=== PATIENT | female | born 1935 | race Caucasian/White ===

== ENCOUNTER 2019-03-24 11:57 | Emergency (ER) | payer MEDICARE, OTHER, SELFPAY ==
[2019-03-24 12:00] VITALS: BP 161/92; PULSE 67; RESP 16; TEMP 36.6; O2SAT 95
--- NOTE | 2019-03-24 12:00 | ECG_ITS ---
Measurements Intervals [place] Rate: 65 P: 75 SC: 167 QRS: 75 QRSD: 129 T: 63 QT: 393 QTc: 410 Interpretive Statements SINUS RHYTHM POSSIBLE LEFT ATRIAL ENLARGEMENT RIGHT BUNDLE BRANCH BLOCK BASELINE ARTIFACT- I, III, AVR, AVL,A VF ABNORMAL ECG Electronically Signed On 03-25-2019 13:55:04 HOT MILL OPERATOR by Henok Ceballos D.O.
--- NOTE | 2019-03-24 12:10 | ED.FALL ---
HPI - Fall General Chief Complaint: Fall Stated Complaint: Fall - Right arm injury Time Seen by Provider: 03/24/19 12:09 Source: patient and RN notes reviewed Mode of arrival: ambulatory Limitations: no limitations History of Present Illness HPI Narrative: A 84 y/o female presents to the ED after having a ground level fall at 5:45 AM this morning. She states that she got up from bed at 5:45 AM when she leaned too far to the rt on her walker and tipped over, falling, and hitting her rt wrist on a piece of furniture. She reports some mild rt wrist pain and a laceration. She notes that she was able to get up on her own and ambulate after. She notes that her last tetanus shot was on 05/2006. She denies any MORGAN, neck pain, back pain, ABD pain, CP, HI, LOC, and any other medical complaints at this time. MD complaint: fall Onset (ago): hour(s) (6) Fall from: standing Place fall occurred: home Loss of consciousness: none Prolonged down time: no Symptoms prior to fall: none Context: tripped/slipped Location of injury - extremities: Left: forearm (wrist) Associated symptoms (after fall): denies Related Data Home Medications Medication Instructions Recorded Confirmed denosumab 60 mg/mL subcutaneous 60 mg SUB-Q [id number] 01/31/19 syringe C,E,zinc,copper [id number] 1 cap PO DAILY 03/24/19 03/24/19 [Ocuvite Adult 50 Plus] [place]-3 (with dpa) 03/24/19 ascorbic acid (vitamin C) [Vitamin 500 mg PO DAILY 03/24/19 03/24/19 C] aspirin 81 mg PO DAILY 03/24/19 03/24/19 calcium carbonate [Calcium 600] 600 mg PO DAILY 03/24/19 03/24/19 cholecalciferol (vitamin D3) 2,000 unit PO DAILY 03/24/19 03/24/19 [Vitamin D3] denosumab [Prolia] 60 mg SUBCUT [id number] 03/24/19 03/24/19 latanoprost 1 drp OPHTHALMIC (EYE) DAILY 03/24/19 03/24/19 magnesium 250 mg PO DAILY 03/24/19 03/24/19 pilocarpine HCl 1 drp OPHTHALMIC (EYE) QID 03/24/19 03/24/19 primidone 25 mg PO HS 03/24/19 03/24/19 vitamin B complex 1 tablet PO DAILY 03/24/19 03/24/19 Allergies Allergy/AdvReac Type Severity Reaction Status Date / Time bacitracin Allergy Unknown Unknown Verified 03/24/19 12:09 gentamicin Allergy Unknown Unknown Verified 03/24/19 12:09 neomycin Allergy Unknown Unknown Verified 03/24/19 12:09 Sulfa (Sulfonamide Allergy Unknown Unknown Verified 03/24/19 12:09 Antibiotics) timolol Allergy Unknown Unknown Verified 03/24/19 12:09 Review of Systems Review of Systems: All systems reviewed & are unremarkable except as noted in HPI and below Constitutional: Constitutional: Denies chills, Denies fever(s), Denies headache(s) and Denies weakness Eyes: Eyes: Denies blurry vision ENT: Denies headache(s) and Denies neck pain Cardiovascular: Cardiovascular: Denies chest pain and Denies dyspnea Respiratory: Respiratory: Denies cough and Denies dyspnea Gastrointestinal: Gastrointestinal: Denies abdominal pain, Denies diarrhea, Denies nausea and Denies vomiting Genitourinary: Genitourinary: Denies hematuria and Denies dysuria Musculoskeletal: Musculoskeletal: Denies back pain, Denies neck pain and Reports other (mild lt wrist pain) Integumentary/Breasts: Skin/Breast: Reports other (skin tear lt wrist) Neurologic: Denies headache(s), Denies weakness and Denies other (HI or LOC) [facility] Past Medical History Medical History (Updated 03/24/19 @ 12:23 by Camacho Rodriguez) Femur fracture, left Surgical History Surgical History (Updated 03/24/19 @ 12:23 by Camacho Rodriguez) Surgical history unknown Family History Family History (Updated 09/22/18 @ 10:19 by DOCTOR UNKNOWN) Father Acute myocardial infarction Patient's father is Mother Acute myocardial infarction Patient's mother is Social History Social History Smoking status: Never smoker Second hand tobacco smoke exposure: No Alcohol intake: never Exam Const: General: no acute distress and well developed Orientation/consciousness: oriented to person, oriented to place
[2019-03-24] MEDS: TETANUS,DIPHTHERIA,AC PERTUSSIS ADULT (0.5 ML) BOOSTRIX IM (13:17)
[2019-03-24 13:22] VITALS: BP 148/76; PULSE 56; RESP 15; O2SAT 98
== END 2019-03-24 13:23 | disposition home or self-care (01) ==
PROVIDERS: Emergency Provider Emergency Medicine; PCP Internal Medicine
DX: S51.811A Laceration without foreign body of right forearm, initial encounter (principal); Z23 Encounter for immunization; I45.10 Unspecified right bundle-branch block; R94.31 Abnormal electrocardiogram [ECG] [EKG]; W18.39XA Other fall on same level, initial encounter
CPT/HCPCS: 90471; 90715; 93005; 99282

== ENCOUNTER 2019-04-11 10:56 | Outpatient (CLI) | payer MEDICARE, OTHER, SELFPAY ==
--- NOTE | ~2019-04-11 | MR_ITS ---
EXAMINATION: MR brain/brain stem wo/w con DATE: 04/11/2019 12:13 INDICATION: Cerebral infarction, unspecified. TECHNIQUE: Magnetic resonance imaging (MRI) of the brain and brainstem was performed without and with 12 mL MultiHance intravenous contrast. Sequences included sagittal and axial T1-weighted FSE, axial diffusion-weighted FS EPI, axial T2*-weighted GRE, axial T2-weighted FLAIR Propeller, and axial T2-we ighted Propeller. Postcontrast sequences included axial and coronal T1-weighted FSE. Apparent diffusi on coefficient (ADC) maps were created. COMPARISON: Brain MRI 02/08/2019 FINDINGS: There are old infarcts in the bilateral basal ganglia. There are scattered areas of nonspec ific increased T2-weighted signal intensity in the cerebral white matter. There is no intracranial he morrhage, acute infarction, or abnormal intracranial mass lesion. There is ex vacuo dilatation of ant erior body of right lateral ventricle. The paranasal sinuses are clear. There are likely changes of o cular lens replacement surgeries. The mastoid air cells are normal. IMPRESSION: 1. Old infarcts in the bilateral basal ganglia. 2. Unchanged moderate nonspecific cerebral white matter disease, which likely represents chronic smal l vessel ischemic disease. Reviewed, dictated and finalized at location A. 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 Old infarcts in the bilateral basal ganglia. 2. Unchanged moderate nonspecific cerebral white matter disease, which likely r epresents chronic small vessel ischemic disease.
[2019-04-11 11:42] LABS: Blood Urea Nitrogen 22 mg/dL (8-26); Estimated Glomerular Filt Rate > 60
== END 2019-04-11 10:57 | disposition home or self-care (01) ==
PROVIDERS: PCP Internal Medicine; Visit Provider Internal Medicine
DX: I63.9 Cerebral infarction, unspecified (principal); R93.0 Abnormal findings on diagnostic imaging of skull and head, not elsewhere classified
CPT/HCPCS: 70553; A9577

== ENCOUNTER 2019-09-14 15:52 | Outpatient (CLI) | payer MEDICARE, OTHER, SELFPAY ==
--- NOTE | ~2019-09-14 | MM_ITS ---
EXAMINATION: MM screening [facility] BI w [facility]bell HISTORY: Screening mammogram TECHNIQUE: Craniocaudal and mediolateral oblique 3-D tomosynthesis images were obtained and synthetic 2-D images were generated. CAD analysis was submitted and interpreted. COMPARISON: 01/01/2018, 12/30/2017, 12/25/2016, 12/25/2015 BREAST PARENCHYMAL COMPOSITION: There are scattered areas of fibroglandular density. FINDINGS: There is no evidence of suspicious mass, calcification, or architectural distortion to sugg est malignancy in either breast. There has been no suspicious interval change. IMPRESSION: 1. No mammographic evidence of malignancy. 2. Recommend routine screening mammography in one year. BI-RADS Category 1: Negative Reviewed, dictated and finalized at location A.
--- NOTE | ~2019-09-14 | DEXA_ITS ---
Bone Density Report Name: Jennifer Lester Age: 84 Sex: Female Ethnicity: White Date of : 1935 Indication: postmenopausal osteoporosis; monitoring treatment; hyperparathyroidism; prior fracture; hysterectomy; Referring Provider: Darcy Collier Study: Bone densitometry was performed. Exam Date: September 14, 2019 Accession number: [id number] Bone Density: Region BMD T-score Z-score Classification AP Spine (L1-L4) 0.737 -2.8 0.0 Osteoporosis Femoral Neck (Right) 0.594 -2.3 0.2 Osteopenia Total Hip (Right) 0.702 -2.0 0.3 Osteopenia World Health Organization criteria for BMD impression classify patients as: Normal (T-score at or above -1.0), Osteopenia (T-score between -1.0 and -2.5), or Osteoporosis (T-score at or below -2.5). 10-year Fracture Risk: FRAX not reported because: Some T-score for Spine Total or Hip Total or Femoral Neck at or below -2.5 Prior hip or vertebral fracture Treated for osteopor Previous Exams: Region Exam Age BMD T-score BMD Change BMD Change Date g/cm2 vs Baseline vs Previous AP Spine(L1-L4) 09/14/2019 84 0.737 -2.8 -0.058(-7.2%)# 0.088(13.5%)* 09/14/2014 79 0.649 -3.6 -0.145(-18.3%) -0.042(-6.0%)# 06/07/2012 77 0.691 -3.2 -0.103(-13.0%) -0.034(-4.7%)# 06/05/2010 75 0.725 -2.9 -0.069(-8.7%)* -0.069(-8.7%)* 11/30/2000 65 0.794 -2.3 Total Hip(Right) 09/14/2019 84 0.702 -2.0 -0.030(-4.1%)# 0.000(0.1%) 09/14/2014 79 0.702 -2.0 -0.031(-4.2%)# -0.018(-2.6%)# 06/07/2012 77 0.720 -1.8 -0.012(-1.6%)# 0.017(2.4%)# 06/05/2010 75 0.703 -2.0 -0.029(-4.0%)* -0.029(-4.0%)* 11/30/2000 65 0.732 -1.7 *Denotes significance at 95% confidence level, LSC for AP Spine = 0.022 g/cm2, LSC for Total Hip = 0.027 g/cm2 Clinical Information Provided by Patient: Have had a previous hip or vertebral fracture Has had a low trauma fracture Is being treated for osteoporosis Has used the following medications: Vitamin D, Calcium Has the following medical conditions: Hyperparathyroidism, Hysterectomy Patient maximum height was 66.5 Menopause Age: 46 No regular weight bearing exercise Onset of menses at age 15 Number of children 3 Impression: The patient has established osteoporosis, based on the Total Spine T-score and the existence of a prior fracture. The patient has risk factors, including: previous fracture. No significant bone loss was observed. Discussion: PATIENT UNDER TREATMENT WITH NO SIGNIFICANT BMD LOSS SINCE LAST EXAM. In an untreated p
[2019-09-14 16:54] LABS: Calcium 9.2 mg/dL (8.4-10.2); Parathyroid Intact 64.4 pg/mL (7.5-53.5)
[2019-09-14 17:20] LABS: Vitamin D 25 Hydroxy 45.9 ng/mL
== END 2019-09-14 15:53 | disposition home or self-care (01) ==
PROVIDERS: PCP Internal Medicine; Referring Provider Nurse Practitioner; Visit Provider Internal Medicine
DX: Z12.31 Encounter for screening mammogram for malignant neoplasm of breast (principal); E55.9 Vitamin D deficiency, unspecified; E21.3 Hyperparathyroidism, unspecified; M81.0 Age-related osteoporosis without current pathological fracture; M85.89 Other specified disorders of bone density and structure, multiple sites
CPT/HCPCS: 36415; 77063; 77067; 77080; 82306; 82310; 83970

== ENCOUNTER 2019-12-19 12:10 | Outpatient (CLI) | payer MEDICARE, OTHER, SELFPAY ==
[2019-12-19 12:57] LABS: Anion Gap 5 mmol/L (8-16); Blood Urea Nitrogen 14 mg/dL (7-17); Calcium 9.4 mg/dL (8.4-10.2); Carbon Dioxide 33 mmol/L (22-30); Chloride 100 mmol/L (98-107); Estimated Glomerular Filt Rate > 60; Glucose 82 mg/dL (65-105); Potassium 4.2 mmol/L (3.4-5.0); Sodium 138 mmol/L (137-145)
[2019-12-19 13:07] LABS: Parathyroid Intact 86.2 pg/mL (7.5-53.5)
[2019-12-19 13:43] LABS: Vitamin D 25 Hydroxy 64.7 ng/mL
== END 2019-12-19 12:11 | disposition home or self-care (01) ==
PROVIDERS: PCP Internal Medicine; Visit Provider Internal Medicine
DX: E55.9 Vitamin D deficiency, unspecified (principal); Z13.6 Encounter for screening for cardiovascular disorders; E21.3 Hyperparathyroidism, unspecified
CPT/HCPCS: 36415; 80048; 82306; 83970

== ENCOUNTER 2020-09-06 09:53 | Outpatient (CLI) | payer MEDICARE, OTHER, SELFPAY ==
[2020-09-06 10:52] LABS: Albumin Level 4.3 g/dL (3.5-5.1); Anion Gap 5 mmol/L (8-16); Blood Urea Nitrogen 18 mg/dL (7-17); Calcium 9.2 mg/dL (8.4-10.2); Carbon Dioxide 31 mmol/L (22-30); Chloride 103 mmol/L (98-107); Estimated Glomerular Filt Rate > 60; Glucose 77 mg/dL (65-105); Phosphorus 3.8 mg/dL (2.5-4.5); Potassium 4.4 mmol/L (3.4-5.0); Sodium 139 mmol/L (137-145)
[2020-09-06 11:29] LABS: Vitamin D 25 Hydroxy 72.6 ng/mL
[2020-09-09 23:14] LABS: Ionized Calcium 5.1 mg/dL (4.8-5.6)
[2020-09-10 12:12] LABS: Calcium/Creatinine Ratio, Ur 62 mg/g creat (10-320); Urine Calcium, Random 7.7 mg/dL (***); Urine Creatinine, Random 125 mg/dL (20-275)
== END 2020-09-06 09:54 | disposition home or self-care (01) ==
LOC: ANHLAB 09:55
PROVIDERS: PCP Internal Medicine; Visit Provider Internal Medicine Endocrinology, Diabetes & Metabolism
DX: E21.3 Hyperparathyroidism, unspecified (principal); M81.0 Age-related osteoporosis without current pathological fracture; E55.9 Vitamin D deficiency, unspecified
CPT/HCPCS: 36415; 80069; 82306; 82310; 82330; 82570; 83970; 84443

== ENCOUNTER 2020-11-01 16:30 | Outpatient (CLI) | payer MEDICARE, OTHER, SELFPAY ==
--- NOTE | ~2020-11-01 | MM_ITS ---
EXAMINATION: MM screening [facility] BI w [facility] HISTORY: Screening TECHNIQUE: Craniocaudal and mediolateral oblique 3-D tomosynthesis images were obtained and synthetic 2-D images were generated. CAD analysis was submitted and interpreted. COMPARISON: Comparison to multiple prior studies sequentially, with oldest reviewed study dated 07/2014. BREAST PARENCHYMAL COMPOSITION: There are scattered areas of fibroglandular density. FINDINGS: There is no evidence of suspicious mass, calcification, or architectural distortion to sugg est malignancy in either breast. There has been no suspicious interval change. IMPRESSION: 1. No mammographic evidence of malignancy. 2. Recommend routine screening mammography in one year. BI-RADS Category 1: Negative Reviewed, dictated and finalized at location A.
== END 2020-11-01 16:31 | disposition home or self-care (01) ==
LOC: ANHIMG 16:33
PROVIDERS: PCP Internal Medicine; Visit Provider Student in an Organized Health Care Education/Training Program
DX: Z12.31 Encounter for screening mammogram for malignant neoplasm of breast (principal)
CPT/HCPCS: 77063; 77067

== ENCOUNTER 2021-03-21 14:10 | Outpatient (CLI) | payer MEDICARE, OTHER, SELFPAY ==
[2021-03-21 16:53] LABS: Vitamin D 25 Hydroxy 68.8 ng/mL
[2021-03-21 16:57] LABS: Albumin Level 4.4 g/dL (3.5-5.1); Anion Gap 8 mmol/L (8-16); Blood Urea Nitrogen 22 mg/dL (7-17); Calcium 9.7 mg/dL (8.4-10.2); Carbon Dioxide 29 mmol/L (22-30); Chloride 100 mmol/L (98-107); Estimated Glomerular Filt Rate > 60; Glucose 90 mg/dL (65-110); Phosphorus 4.2 mg/dL (2.5-4.5); Potassium 3.8 mmol/L (3.4-5.0); Sodium 137 mmol/L (137-145)
[2021-03-21 17:06] LABS: Parathyroid Intact 58.6 pg/mL (7.5-53.5)
== END 2021-03-21 14:11 | disposition home or self-care (01) ==
LOC: ANHWCLAB 14:13
PROVIDERS: PCP Internal Medicine; Visit Provider Internal Medicine Endocrinology, Diabetes & Metabolism
DX: E21.3 Hyperparathyroidism, unspecified (principal); R79.89 Other specified abnormal findings of blood chemistry; E03.9 Hypothyroidism, unspecified; M81.0 Age-related osteoporosis without current pathological fracture
CPT/HCPCS: 36415; 80069; 82306; 83970; 84443

== ENCOUNTER 2021-07-02 14:49 | Outpatient (CLI) | payer MEDICARE, OTHER, SELFPAY ==
--- NOTE | ~2021-07-02 | DEXA_ITS ---
Bone Density Report Name: NATHANIEL THOMPSON Age: 86 Sex: Female Ethnicity: White Date of : 1935 Indication: postmenopausal osteoporosis; monitoring treatment; inflammatory bowel disease; prior fracture; Referring Provider: JANE HWANG Study: Bone densitometry was performed. Exam Date: July 02, 2021 Accession number: [id number] Bone Density: Region BMD T-score Z-score Classification AP Spine(L1-L4) 0.763 -2.6 0.3 Osteoporosis Femoral Neck (Left) 0.639 -1.9 0.6 Osteopenia Total Hip (Left) 0.688 -2.1 0.3 Osteopenia Femoral Neck (Right) 0.609 -2.2 0.4 Osteopenia Total Hip (Right) 0.702 -2.0 0.4 Osteopenia Total Hip Mean 0.695 -2.1 0.4 Osteopenia World Health Organization criteria for BMD impression classify patients as: Normal (T-score at or above -1.0), Osteopenia (T-score between -1.0 and -2.5), or Osteoporosis (T-score at or below -2.5). 10-year Fracture Risk: FRAX not reported because: Some T-score for Spine Total or Hip Total or Femoral Neck at or below -2.5 Prior hip or vertebral fracture Treated for osteoporosis Previous Exams: Region Exam Age BMD T-score BMD Change BMD Change Date g/cm2 vs Baseline vs Previous AP Spine (L1-L4) 07/02/2021 86 0.763 -2.6 0.072 (10.4%)# 0.026 (3.5%)* 09/14/2019 84 0.737 -2.8 0.046 (6.7%)# 0.088 (13.5%)* 09/14/2014 79 0.649 -3.6 -0.042 (-6.0%) -0.042 (-6.0%) 06/07/2012 77 0.691 -3.2 Total Hip(Left) 07/02/2021 86 0.688 -2.1 -0.033 (-4.5%) 0.010 (1.5%) 09/14/2014 79 0.677 -2.2 -0.043 (-5.9%) -0.043 (-5.9%) 06/07/2012 77 0.720 -1.8 Total Hip(Right) 07/02/2021 86 0.702 -2.0 -0.018 (-2.5%) 0.000 (0.0%) 09/14/2019 84 0.702 -2.0 -0.018 (-2.5%) 0.000 (0.1%) 09/14/2014 79 0.702 -2.0 -0.018 (-2.6%) -0.018 (-2.6%) 06/07/2012 77 0.720 -1.8 *Denotes significance at 95% confidence level, LSC for AP Spine = 0.022 g/cm2, LSC for Total Hip = 0.027 g/cm2 # Denotes dissimilar scan types or analysis methods Clinical Information Provided by Patient: Have had a previous hip or vertebral fracture Has had a low trauma fracture Is being treated for osteoporosis Has used the following medications: Fosamax (i.e. alendronate), Prolia (i.e. denosumab), Vitamin D, Calcium Has the following medical conditions: Inflammatory bowel diseases Patient maximum height was 66 Menopause Age: 46 No regular weight bearing exercise Onset of menses at age 13 Number of children 3
== END 2021-07-02 14:50 | disposition home or self-care (01) ==
PROVIDERS: PCP Internal Medicine; Visit Provider Internal Medicine Endocrinology, Diabetes & Metabolism
DX: E21.3 Hyperparathyroidism, unspecified (principal); M81.0 Age-related osteoporosis without current pathological fracture; M85.89 Other specified disorders of bone density and structure, multiple sites
CPT/HCPCS: 77080

== ENCOUNTER 2021-09-24 11:09 | Outpatient (CLI) | payer MEDICARE, OTHER, SELFPAY ==
[2021-09-24 14:36] LABS: Albumin Level 4.3 g/dL (3.5-5.1); Anion Gap 9 mmol/L (8-16); Blood Urea Nitrogen 13 mg/dL (7-17); Calcium 9.1 mg/dL (8.4-10.2); Carbon Dioxide 31 mmol/L (22-30); Chloride 96 mmol/L (98-107); Estimated Glomerular Filt Rate > 60; Glucose 91 mg/dL (65-110); Phosphorus 3.7 mg/dL (2.5-4.5); Potassium 4.3 mmol/L (3.4-5.0); Sodium 136 mmol/L (137-145)
[2021-09-24 14:47] LABS: Parathyroid Intact 55.9 pg/mL (7.5-53.5)
== END 2021-09-24 11:10 | disposition home or self-care (01) ==
LOC: ANHWCLAB 11:13
PROVIDERS: PCP Internal Medicine; Referring Provider Internal Medicine Endocrinology, Diabetes & Metabolism; Visit Provider Internal Medicine Endocrinology, Diabetes & Metabolism
DX: R79.89 Other specified abnormal findings of blood chemistry (principal); E21.0 Primary hyperparathyroidism; M81.0 Age-related osteoporosis without current pathological fracture
CPT/HCPCS: 36415; 80069; 82306; 83970

== ENCOUNTER 2021-10-24 11:26 | Outpatient (CLI) | payer MEDICARE, OTHER, SELFPAY ==
[2021-10-24 12:18] LABS: Cholesterol 179 mg/dL (0-200); HDL Direct 70 mg/dL; Triglycerides 74 mg/dL (<150)
[2021-10-24 12:46] LABS: LDL Cholesterol Direct 83 mg/dL
== END 2021-10-24 11:27 | disposition home or self-care (01) ==
LOC: ANHLAB 11:29
PROVIDERS: PCP Internal Medicine; Visit Provider Internal Medicine
DX: Z13.220 Encounter for screening for lipoid disorders (principal); E03.9 Hypothyroidism, unspecified
CPT/HCPCS: 36415; 80061

== ENCOUNTER 2022-02-17 09:35 | Emergency (ER) | payer MEDICARE, OTHER, SELFPAY ==
--- NOTE | ~2022-02-17 | XR_ITS ---
EXAMINATION: [id number] DATE: 02/17/2022 10:12 INDICATION: Left anterior rib pain. Fall. TECHNIQUE: A frontal view of the chest and 2 views on 3 radiographs of the left ribs were obtained. COMPARISON: Chest radiograph 05/13/2017 FINDINGS: There is mild scarring at the lung apices. No pleural effusion or pneumothorax. The heart s ize is normal. There are old healed bilateral rib fractures. IMPRESSION: 1. No acute rib fracture. 2. Stable mild scarring at the lung apices. Reviewed, dictated and finalized at location A. 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
[2022-02-17 10:00] VITALS: BP 137/61; PULSE 74; RESP 16; TEMP 36.4; O2SAT 100
--- NOTE | 2022-02-17 10:25 | ED.GENADULT ---
HPI - General Adult General Chief complaint: Wound/Laceration Stated complaint: lt shoulder injury Time Seen by Provider: 02/17/22 10:26 Source: patient Mode of arrival: ambulatory Limitations: no limitations History of Present Illness HPI narrative: 87-year-old female presents with concern for fall. She reports it was dark and she tripped and hit her rib area on a curb. She reports pain worsens with deep breathing and coughing. She reports pain is just below her breast. She denies open skin, bruising. She denies diaphoresis, pain worsening exertion, pain radiating. MD complaint: Rib pain Related Data Home Medications Medication Instructions Recorded Confirmed latanoprost 0.005 % eye drops 1 drop ophthalmic (eye) QPM 02/01/19 02/17/22 magnesium 250 mg tablet 250 mg PO DAILY 02/01/19 02/17/22 aspirin 81 mg tablet,delayed 81 mg PO DAILY 03/15/19 02/17/22 release (Adult Aspirin Regimen) cholecalciferol (vitamin D3) 50 2,000 unit PO DAILY 03/24/19 02/17/22 mcg (2,000 unit) tablet (Vitamin D3) pilocarpine HCl 1 % eye drops 1 drp ophthalmic (eye) QID 03/24/19 02/17/22 vit C,E,zinc,copper-[id number] 250 1 cap PO DAILY 03/24/19 02/17/22 mg-lutein 5 mg-zeaxanthin 1 mg capsule (Ocuvite Adult 50 Plus) vitamin B complex 1 tablet PO DAILY 03/24/19 02/17/22 zinc 50 mg tablet 50 mg PO DAILY 06/14/19 02/17/22 calcium carbonate 600 mg calcium 600 mg PO BID 09/13/20 02/17/22 (1,500 mg) tablet (Calcium) omega-3 fatty acids-fish oil 360 1 cap PO DAILY 09/13/20 02/17/22 mg-1,200 mg capsule (Fish Oil) ascorbate calcium (vitamin C) 500 500 mg PO DAILY 09/24/21 02/17/22 mg tablet ascorbic acid (vitamin C) 1,000 mg 500 mg PO DAILY 09/24/21 02/17/22 tablet,extended release Allergies Allergy/AdvReac Type Severity Reaction Status Date / Time timolol Allergy Intermediate Nausea and Verified 02/17/22 09:57 Vomiting bacitracin Allergy Unknown Rash Verified 02/17/22 09:57 gentamicin Allergy Unknown Rash Verified 02/17/22 09:57 neomycin Allergy Unknown Rash Verified 02/17/22 09:57 polymyxin B Allergy Unknown Rash Verified 02/17/22 09:57 Sulfa (Sulfonamide Allergy Unknown Rash Verified 02/17/22 09:57 Antibiotics) Review of Systems Review of Systems: CONSTITUTIONAL: Denies malaise, chills, sweats, or fever. CARDIOVASCULAR: Denies chest pain, palpitations, or edema. RESPIRATORY: Denies cough or dyspnea. GASTROINTESTINAL: Denies abdominal pain, nausea, vomiting SKIN: Denies bruising, open skin MUSCULOSKELETAL: Reports rib pain near the left breast NEUROLOGIC: Denies numbness, weakness All systems reviewed & are unremarkable except as noted in HPI and below PMFSH Past Medical History Medical History Allergies Blood clot in vein COVID-19 Femur fracture, left Glaucoma Osteoporosis Thyroid disease TIA (transient ischemic attack) Urinary incontinence Surgical History Surgical History H/O total hysterectomy S/P removal of parathyroid gland Surgical history unknown [place] teeth removed Family History Family History Father Acute myocardial infarction Patient's father is Mother Acute myocardial infarction Patient's mother is Other Alcoholism Cancer Depression H/O: hysterectomy Heart disease Social History Social History Smoking status: Never smoker Second hand tobacco smoke exposure: No Alcohol intake: never Substance use: never Substance use type: does not use Gender identity (if verbalized by the patient): Female Sexual Orientation (if Verbalized by the Patient): Straight or Heterosexual Spiritual care concerns: No Comments At time of signature, agree with nursing past medical, surgical, social and family history. There is no relevant
== END 2022-02-17 10:36 | disposition home or self-care (01) ==
PROVIDERS: Emergency Provider Nurse Practitioner; PCP Family Medicine
DX: S20.212A Contusion of left front wall of thorax, initial encounter (principal); W01.0XXA Fall on same level from slipping, tripping and stumbling without subsequent striking against object, initial encounter; H40.9 Unspecified glaucoma; M81.0 Age-related osteoporosis without current pathological fracture; Z86.73 Personal history of transient ischemic attack (TIA), and cerebral infarction without residual deficits; Z90.89 Acquired absence of other organs; Z86.2 Personal history of diseases of the blood and blood-forming organs and certain disorders involving the immune mechanism; Z86.16 Personal history of COVID-19; Z79.82 Long term (current) use of aspirin
CPT/HCPCS: 71101; 99213; G0463

== ENCOUNTER 2022-07-03 17:43 | Emergency (ER) | payer MEDICARE, OTHER, SELFPAY ==
[2022-07-03 18:01] VITALS: BP 134/66; PULSE 67; RESP 16; TEMP 36.5; O2SAT 98
--- NOTE | 2022-07-03 18:13 | ED.URI ---
HPI - URI/Sore Throat General Chief Complaint: Upper Respiratory Infection Stated Complaint: sore throat Time Seen by Provider: 07/03/22 18:13 History of Present Illness HPI Narrative: 87-year-old female presented for c/o sore throat today. States it was the worst sore throat she has ever had, and woke her in the night. She felt better after drinking warm water and eating breakfast, and using cough drops; however the throat pain slowly started to return. Still is not as painful as in the night. Endorses chronic runny nose, unchanged. Denies difficulty swallowing, n/v/d/f/c. Denies sick contacts. Related Data Home Medications Medication Instructions Recorded Confirmed latanoprost 0.005 % eye drops 1 drop ophthalmic (eye) QPM 02/01/19 07/03/22 magnesium 250 mg tablet 250 mg PO DAILY 02/01/19 07/03/22 aspirin 81 mg tablet,delayed 81 mg PO DAILY 03/15/19 07/03/22 release (Adult Aspirin Regimen) cholecalciferol (vitamin D3) 50 2,000 unit PO DAILY 03/24/19 07/03/22 mcg (2,000 unit) tablet (Vitamin D3) pilocarpine HCl 1 % eye drops 1 drp ophthalmic (eye) QID 03/24/19 07/03/22 vit C,E,zinc,copper-[id number] 250 1 cap PO DAILY 03/24/19 07/03/22 mg-lutein 5 mg-zeaxanthin 1 mg capsule (Ocuvite Adult 50 Plus) vitamin B complex 1 tablet PO DAILY 03/24/19 07/03/22 zinc 50 mg tablet 50 mg PO DAILY 06/14/19 07/03/22 calcium carbonate 600 mg calcium 600 mg PO BID 09/13/20 07/03/22 (1,500 mg) tablet (Calcium) omega-3 fatty acids-fish oil 360 1 cap PO DAILY 09/13/20 07/03/22 mg-1,200 mg capsule (Fish Oil) ascorbate calcium (vitamin C) 500 500 mg PO DAILY 09/24/21 07/03/22 mg tablet ascorbic acid (vitamin C) 1,000 mg 500 mg PO DAILY 09/24/21 07/03/22 tablet,extended release Allergies Allergy/AdvReac Type Severity Reaction Status Date / Time timolol Allergy Intermediate Nausea and Verified 07/03/22 17:57 Vomiting bacitracin Allergy Unknown Rash Verified 07/03/22 17:57 gentamicin Allergy Unknown Rash Verified 07/03/22 17:57 neomycin Allergy Unknown Rash Verified 07/03/22 17:57 polymyxin B Allergy Unknown Rash Verified 07/03/22 17:57 Sulfa (Sulfonamide Allergy Unknown Rash Verified 07/03/22 17:57 Antibiotics) Review of Systems Review of Systems: CONSTITUTIONAL: Denies body aches, fever, chills, or sweats. EYES: Denies visual changes, redness, or discharge. ENT: Denies congestion, or otalgia. CARDIOVASCULAR: Denies chest pain, palpitations, or edema. RESPIRATORY: Denies dyspnea. GASTROINTESTINAL: Denies abdominal pain, nausea, vomiting, or diarrhea. SKIN: Denies rash, itching, or wounds. MUSCULOSKELETAL: Denies back pain, joint pain, or myalgia. NEUROLOGIC: Denies headache PMFSH Past Medical History Medical History Allergies Blood clot in vein COVID-19 Femur fracture, left Glaucoma Osteoporosis Thyroid disease TIA (transient ischemic attack) Urinary incontinence Surgical History Surgical History H/O total hysterectomy S/P removal of parathyroid gland Surgical history unknown [place] teeth removed Family History Family History Father Acute myocardial infarction Patient's father is Mother Acute myocardial infarction Patient's mother is Other Alcoholism Cancer Depression H/O: hysterectomy Heart disease Social History Social History Smoking status: Never smoker Second hand tobacco smoke exposure: No Alcohol intake: never Substance use: never Substance use type: does not use Living arrangements: with family Occupation/Education: retired Gender identity (if verbalized by the patient): Female Sexual Orientation (if Verbalized by the Patient): Straight or Heterosexual Spiritual care concerns: No Exam Narrativ
== END 2022-07-03 18:24 | disposition home or self-care (01) ==
PROVIDERS: Emergency Provider Nurse Practitioner Family; PCP Family Medicine
DX: J02.9 Acute pharyngitis, unspecified (principal); H40.9 Unspecified glaucoma; M81.0 Age-related osteoporosis without current pathological fracture; Z86.73 Personal history of transient ischemic attack (TIA), and cerebral infarction without residual deficits; Z86.2 Personal history of diseases of the blood and blood-forming organs and certain disorders involving the immune mechanism; E07.9 Disorder of thyroid, unspecified; Z90.89 Acquired absence of other organs; Z79.82 Long term (current) use of aspirin
CPT/HCPCS: 87081; 87880; 99213; G0463

== ENCOUNTER 2022-10-13 13:10 | Outpatient (CLI) | payer MEDICARE, OTHER, SELFPAY ==
--- NOTE | ~2022-10-13 | DEXA_ITS ---
Bone Density Report Name: NATHANIEL THOMPSON Age: 87 Sex: Female Ethnicity: White Date of : 1935 Indication: postmenopausal osteoporosis; hyperparathyroidism; hysterectomy; Referring Provider: JANE HWANG Study: Bone densitometry was performed. Exam Date: October 13, 2022 Accession number: [id number] Bone Density: Region BMD T-score Z-score Classification AP Spine(L1-L4) 0.735 -2.8 0.0 Osteoporosis Femoral Neck (Left) 0.681 -1.5 1.0 Osteopenia Total Hip (Left) 0.712 -1.9 0.5 Osteopenia Femoral Neck (Right) 0.629 -2.0 0.5 Osteopenia Total Hip (Right) 0.769 -1.4 0.9 Osteopenia Total Hip Mean 0.741 -1.7 0.7 Osteopenia World Health Organization criteria for BMD impression classify patients as: Normal (T-score at or above -1.0), Osteopenia (T-score between -1.0 and -2.5), or Osteoporosis (T-score at or below -2.5). 10-year Fracture Risk: FRAX not reported because: Some T-score for Spine Total or Hip Total or Femoral Neck at or below -2.5 Previous Exams: Region Exam Age BMD T-score BMD Change BMD Change Date g/cm2 vs Baseline vs Previous AP Spine (L1-L4) 10/13/2022 87 0.735 -2.8 0.044 (6.4%)# -0.027 (-3.6%) 07/02/2021 86 0.763 -2.6 0.072 (10.4%)# 0.026 (3.5%)* 09/14/2019 84 0.737 -2.8 0.046 (6.7%)# 0.088 (13.5%)* 09/14/2014 79 0.649 -3.6 -0.042 (-6.0%) -0.042 (-6.0%) 06/07/2012 77 0.691 -3.2 Total Hip(Left) 10/13/2022 87 0.712 -1.9 -0.008 (-1.1%) 0.025 (3.6%) 07/02/2021 86 0.688 -2.1 -0.033 (-4.5%) 0.010 (1.5%) 09/14/2014 79 0.677 -2.2 -0.043 (-5.9%) -0.043 (-5.9%) 06/07/2012 77 0.720 -1.8 Total Hip(Right) 10/13/2022 87 0.769 -1.4 0.049 (6.8%)# 0.067 (9.6%)* 07/02/2021 86 0.702 -2.0 -0.018 (-2.5%) 0.000 (0.0%) 09/14/2019 84 0.702 -2.0 -0.018 (-2.5%) 0.000 (0.1%) 09/14/2014 79 0.702 -2.0 -0.018 (-2.6%) -0.018 (-2.6%) 06/07/2012 77 0.720 -1.8 *Denotes significance at 95% confidence level, LSC for AP Spine = 0.022 g/cm2, LSC for Total Hip = 0.027 g/cm2 # Denotes dissimilar scan types or analysis methods Clinical Information Provided by Patient: Has used the following medications: Prolia (i.e. denosumab), Vitamin D, Calcium Has the following medical conditions: Hyperparathyroidism, Hysterectomy Patient maximum height was 66 Menopause Age: 46 No regular weight bearing exercise Onset of menses at age 14 Number of children 3
== END 2022-10-13 13:11 | disposition home or self-care (01) ==
LOC: ANHIMG 13:12
PROVIDERS: PCP Family Medicine; Visit Provider Internal Medicine Endocrinology, Diabetes & Metabolism
DX: M81.0 Age-related osteoporosis without current pathological fracture (principal); M85.89 Other specified disorders of bone density and structure, multiple sites; E21.3 Hyperparathyroidism, unspecified
CPT/HCPCS: 77080

== ENCOUNTER 2023-01-20 11:59 | Outpatient (CLI) | payer MEDICARE, OTHER, SELFPAY ==
[2023-01-20 12:51] LABS: Basophils Absolute Auto 0.1 K/mm3 (0.0-0.1); Basophils Percent Auto 0.7 % (0.2-1.2); Eosinophils Absolute Auto 0.2 K/mm3 (0-0.3); Eosinophils Percent Auto 2.6 % (0-4.4); Hematocrit 39.7 % (37.0-47.0); Hemoglobin 12.8 g/dL (12.0-15.0); Immature Granulocyte Absolute 0.02 K/mm3 (0.00-0.031); Immature Granulocyte Percent A 0.3 % (0-0.5); Lymphocytes Absolute Auto 2.34 K/mm3 (0.9-3.2); Lymphocytes Percent Auto 30.7 % (18.3-44.2); Mean Corpuscular HGB Conc 32.2 g/dl (32-36); Mean Corpuscular Hemoglobin 31.1 pg (26-34); Mean Corpuscular Volume 96.6 fl (80-100); Mean Platelet Volume 9.5 fl (7.4-10.4); Monocytes Absolute Auto 0.5 K/mm3 (0.1-0.6); Monocytes Percent Auto 7.1 % (2.6-8.5); Neutrophils Absolute Auto 4.5 K/mm3 (1.3-6.7); Neutrophils Percent Auto 58.6 % (45.5-73.1); Platelet Count Result 280 k/mm3 (150-375); Red Blood Count 4.11 M/mm3 (4.2-5.4); Red Cell Distribution Width 14.9 % (11.5-14.5); White Blood Count 7.6 K/mm3 (4.5-10.0)
[2023-01-20 13:26] LABS: Appearance Urine Clear (Clear); Bilirubin Urine Negative (Negative); Blood Urine Negative (Negative); Color Urine Dark Yellow (Yellow); Glucose Urine UA Negative (Negative); Ketones Urine 1+ mg/dL (Negative); Leukocyte Esterase Ur Negative LEU/UL (NEGATIVE); Nitrate Urine Negative (Negative); Protein Urine Negative (Negative); Specific Grav Ur 1.022 (1.001-1.035); Urobilinogen Urine 0.2 mg/dL (<2.0); pH Urine 6.5 (5.0-9.0)
[2023-01-20 13:32] LABS: Alanine Aminotransferase 18 U/L (6-35); Alkaline Phosphatase 46 U/L (38-126); Anion Gap 8 mmol/L (8-16); Aspartate Amino Transferase 31 U/L (14-36); Bilirubin,Total 0.6 mg/dL (0.2-1.3); Blood Urea Nitrogen 21 mg/dL (7-17); Calcium 9.5 mg/dL (8.4-10.2); Carbon Dioxide 29 mmol/L (22-30); Chloride 101 mmol/L (98-107); Cholesterol 202 mg/dL (0-200); Estimated Glomerular Filt Rate > 60; Glucose 92 mg/dL (65-110); HDL Direct 68 mg/dL; Sodium 138 mmol/L (137-145); Triglycerides 79 mg/dL (<150)
[2023-01-20 13:43] LABS: LDL Cholesterol Direct 101 mg/dL; Parathyroid Intact 42.9 pg/mL (7.5-53.5)
[2023-01-20 13:43] LABS: Add Urine Microscopic? NO
== END 2023-01-20 12:00 | disposition home or self-care (01) ==
PROVIDERS: Physician Assistant; PCP Family Medicine; Referring Provider Internal Medicine Endocrinology, Diabetes & Metabolism; Visit Provider Family Medicine
DX: E21.3 Hyperparathyroidism, unspecified (principal); Z13.6 Encounter for screening for cardiovascular disorders; R79.89 Other specified abnormal findings of blood chemistry; R32 Unspecified urinary incontinence; M81.0 Age-related osteoporosis without current pathological fracture; G25.0 Essential tremor; E21.0 Primary hyperparathyroidism
CPT/HCPCS: 36415; 80053; 80061; 81003; 82306; 83970; 84443; 85025

== ENCOUNTER 2024-03-23 14:47 | Outpatient (CLI) | payer MEDICARE, SELFPAY ==
[2024-03-23 15:11] LABS: Hematocrit 40.4 % (37.0-47.0); Hemoglobin 13.2 g/dL (12.0-15.0); Mean Corpuscular HGB Conc 32.7 g/dl (32-36); Mean Corpuscular Hemoglobin 31.4 pg (26-34); Mean Corpuscular Volume 96.2 fl (80-100); Mean Platelet Volume 9.8 fl (7.4-10.4); Platelet Count Result 227 k/mm3 (150-375); Red Cell Distribution Width 14.4 % (11.5-14.5); White Blood Count 7.1 K/mm3 (4.5-10.0)
[2024-03-23 15:28] LABS: Alanine Aminotransferase 15 U/L (6-35); Alkaline Phosphatase 44 U/L (38-126); Anion Gap 7 mmol/L (4-12); Aspartate Amino Transferase 25 U/L (14-36); Bilirubin,Total 0.3 mg/dL (0.2-1.3); Blood Urea Nitrogen 26 mg/dL (7-17); Calcium 9.1 mg/dL (8.4-10.2); Carbon Dioxide 29 mmol/L (22-30); Chloride 101 mmol/L (98-107); Estimated Glomerular Filt Rate 58; Glucose 112 mg/dL (65-110); Potassium 3.6 mmol/L (3.4-5.0); Sodium 137 mmol/L (137-145)
[2024-03-23 15:35] LABS: Parathyroid Intact 30.4 pg/mL (14.5-75.2)
[2024-03-23 17:27] LABS: Vitamin D 25 Hydroxy > 126.0 ng/mL
--- OUTSIDE RECORDS SUMMARY | 2024-03-25 02:30 | XMS_ITS | Clinical Summary ---
Author Organization [facility] Address [address] [facility], [facility] [address] [place] [address] Phone Care Team Providers Care Assistant Professor Of Anthropology Name Role Phone Bernabe Healy MD Primary Care Provider [phone] Rowan Del Real APRN, LE[employer] HELPER Unavailable Graham Wadsworth DO Unavailable [phone] Allergies Active Allergy Reactions Criticality Noted Date Comments Timolol Maleate Unknown 01/29/2016 Neomycin Unknown 01/29/2016 Sulfate Unknown 01/29/2016 Medications Calcium Carbonate (CALCIUM 600 PO) Take by mouth. Activ e vitamin D (CHOLECALCIFERO L) 1000 UNIT Tablet Take 1,000 Units by mouth daily. Active ascorbic acid (ASCORBIC ACID) 500 MG Tablet Take 500 mg by mouth daily. Active [place]-3 Fatty Acids (OMEGA-3 FISH OIL) 1000 MG Capsule Take by mouth. Acti ve Probiotic Product (PROBIOTIC DAILY PO) Take by mouth. Activ e latanoprost (XALATAN) 0.005 % Solution Place 1 Drop in affected eye(s) nightly. Active pilocarpine (PILOCAR) 1 % Solution Place 1 Drop in affected eye(s) 4 times daily. Active Estradiol (VAGIFEM) 10 MCG Tablet by Vaginal route. Active Teriparatide, Recombinant, (FORTEO SC) by Subcutaneous route. Active polyethylene glycol (MIRALAX) Powder Use entire 255g bottle with 64oz of clear liquid as directed for colonoscopy prep. 255 g 0 6 Active Active Problems No known active problems Family History Medical History Relation Name Comments Heart Attack Father Hypertension Father Cancer Maternal Grandmother uterine Heart Attack Mother Colon Cancer Other paternal uncle Colon Cancer Paternal Uncle Relation Name Status Comments Father Maternal Grandmother Mother Other Paternal Grandmother Paternal Uncle Social History Tobacco Use Types Packs/Day Years Used Date Smoking Tobacco: Never Smokeless Tobacco: Never Alcohol Use Standard Drinks/Week Comments No 0 (1 standard drink = 0.6 oz pur e alcohol) Comments No Sex and Gender Information Value Date Recorded Sex Assigned at Not on file Legal Sex Female 7:23 PM CDT Gender Identity Not on file Sexual Orientation Not on file Last Filed Vital Signs Vital Sign Reading Time Taken Comments Blood Pressure 118/70 01/29/2016 9:[address] [facility] Pulse 67 01/29/2016 9:[address] [facility] Temperature 36.6 ??C (97.8 ??F) 01/29/2016 9:46 AM CS T Respiratory Rate 14 01/29/2016 9:[address] [facility] Oxygen Saturation 93% 01/29/2016 9:[address] [facility] Inhaled Oxygen Concentration - - Weight 59.9 kg (132 lb) 01/29/2016 9:[address] [facility] Height 167.6 cm (5' 6 ) 01/29/2016 9:[address] [facility] Body Mass Index 21.31 01/29/2016 9:[address] [facility] Plan of Treatment Health Maintenance Due Date Last Done Comments DEXA Bone Density 1935 Hepatitis C Virus (HCV) Screening 1935 TdaP Immunization 1935 Pneumococcal Immunization (5 0+ years) (1 of 1 - PCV) 01/27/1986 Zoster Immunization (1 of 2) 01/27/1986 Respiratory Syncytial Virus (RSV) Immunization (Adult) (1 - 1-dose 75+ series) 01/27/2011 Influenza Immunization (#1) 2023 SARS-COV-2 Immunization ( - 2023- season) 2023 01/17/2021, 05/22/2020, 04/12/2020 Hepatitis B Immunization Aged Out No longer eligible based on patient's age to complete this topic Meningococcal Immunization (ACWY) Aged Out No longer eligible b ased on patient's age to complete this topic Rotavirus Immunization Aged Out No lo nger eligible based on patient's age to complete this topic Insurance MEDICARE Care Teams Assistant Professor Of Anthropology Relationship Specialty Start Date End Date Bernabe Healy MD [address] [facility] [address] [place] [address] PCP - General Internal Medicine 01/29/16 Rowan Del Real APRN, [employer] HELPER [address] [place] [address] Nurse Practitioner Advanced Practice Nurse 01/29/16 Graham Wadsworth DO [address] [place] [address] Gastroenterology 04/30/16
--- OUTSIDE RECORDS SUMMARY | 2024-03-25 02:30 | XMS_ITS | Clinical Summary ---
Author Organization [facility] [place] Address [address] [place] [address] Phone Care Team Providers Care House Superintendent Name Role Phone Bernabe Healy MD Primary Care Provider [phone] Allergies Active Allergy Reactions Criticality Noted Date Comments Naproxen Sodium Other (See Comments) 05/30/2013 Stomach problems Neomycin Rash Low 05/30/2013 Sulfa (Sulfonamide Antibiotics) Rash Low 05/30/2013 Medications estradiol (VAGIFEM) 10 mcg tabletIndication s:Abnormal mammogram Insert 10 mcg vaginally. Active CALCIUM CARBONATE (JOHN-600 ORAL)Indications :Abnormal mammogram Take by mouth. Active ascorbic acid (VITAMIN C) 250 mg Tablet, ChewableIndicati ons:Abnormal mammogram Take by mouth daily. Active latanoprost (XALATAN) 0.005 % solutionIndicati ons:Abnormal mammogram 1 Drop daily at bedtime. Active cycloSPORINE (RESTASIS) 0.05 % emulsionIndicati ons:Abnormal mammogram 1 Drop 2 times daily. Active pilocarpine (PILOCAR) 1 % solutionIndicati ons:Abnormal mammogram 1 Drop 3 times daily. Active Fish Oil-[place]-3 Fatty Acids (OMEGA 3 FISH OIL) 684-1,200 mg Capsule, Delayed Release(E.C.)Ind ications:Abnorma l mammogram Take by mouth. Active cholecalciferol, Vitamin D3, (VITAMIN D3) 1,000 unit CapsuleIndicatio ns:Abnormal mammogram Take by mouth daily. Active phytonadione 100 mcg Tablet tabletIndication s:Abnormal mammogram Take by mouth one time only. Active Lacto gasseri-B bifid-B longum ([employer] [employer]) 1.5 billion cell CapsuleIndicatio ns:Abnormal mammogram Take by mouth. Active psyllium seed, sugar, (METAMUCIL) PowderIndication s:Abnormal mammogram Take by mouth daily. Active ANTIOX #11/OM3/DHA/EPA/ LUT/ILDEFONSO (OCUVITE ADULT 50+ ORAL)Indications :Abnormal mammogram Take by mouth. Active ESTRADIOL (ESTROGEL TRANSDERMAL)Hellen cations:Abnormal mammogram Apply to skin as directed. Active ALENDRONATE SODIUM (FOSAMAX ORAL)Indications :Abnormal mammogram Take by mouth. Active RISEDRONATE SODIUM (ACTONEL ORAL)Indications :Abnormal mammogram Take by mouth. Active IBANDRONATE SODIUM (BONIVA ORAL)Indications :Abnormal mammogram Take by mouth. Active Active Problems Patient Care Coordination No te Formatting of this note migh t be different from the original. Primary Care: Bernabe Healy MD Referring Provider: Camilla Marie MD [address] [facility] [address] [place] [address] Other: Problem Noted Date Diagnosed Date Abnormal mammogram 05/30/2013 Cataract Family History Medical History Relation Name Comments Heart Disease Father Cancer Maternal Grandmother female organs Colon Cancer Paternal Cousin Colon Cancer Paternal Uncle bill Relation Name Status Comments Father Maternal Grandmother Paternal Cousin Paternal Uncle bill Social History Tobacco Use Types Packs/Day Years Used Date Smoking Tobacco: Never Smokeless Tobacco: Never Alcohol Use Standard Drinks/Week Comments No 0 (1 standard drink = 0.6 oz pur e alcohol) Comments No Sex and Gender Information Value Date Recorded Sex Assigned at Not on file Legal Sex Female 10:32 AM CDT Gender Identity Not on file Sexual Orientation Not on file Occupation Industry Job Start Date Job End Date Not on file Not on file Not on file Not on file Last Filed Vital Signs Vital Sign Reading Time Taken Comments Blood Pressure - - Pulse - - Temperature - - Respiratory Rate - - Oxygen Saturation - - Inhaled Oxygen Concentration - - Weight 61.5 kg (135 lb 9.6 oz) 05/30/2013 10:17 AM CDT Height 167.6 cm (5' 6 ) 05/30/2013 10:17 AM CDT Body Mass Index 21.89 05/30/2013 10:17 AM CDT Plan of Treatment Health Maintenance Due Date Last Done Comments DTAP/TDAP/TD VACCINES (1 - Tdap) 01/27/1954 PNEUMOCOCCAL VACCINE 65+ YEARS (1 of 1 - PCV) 01/27/19 86 ZOSTER VACCINE (1 of 2) 01/27/1986 OSTEOPOROSIS SCREENING 01/27/2001 RSV VACCINE (60+ or ) (1 - 1-dose 75+ series) 01/27/2011 INFLUENZA VACCINE (#1) 2023 Insurance MEDICARE PART A AND B Care Teams House Superintendent Relationship Specialty Start Date End Date Bernabe Healy MD [address] [place] [id number] PCP - General Internal Medicine 05/30/13
== END 2024-03-23 14:48 | disposition home or self-care (01) ==
LOC: ANHLAB 14:48
PROVIDERS: PCP Family Medicine; Visit Provider Family Medicine
DX: E21.3 Hyperparathyroidism, unspecified (principal); R79.89 Other specified abnormal findings of blood chemistry; R53.83 Other fatigue
CPT/HCPCS: 36415; 80053; 82306; 82330; 83970; 84443; 85027